=== PATIENT | female | born 1970 | race Caucasian/White ===

== ENCOUNTER 2017-10-15 16:02 | Emergency (ER) | payer SELFPAY ==
[2017-10-15 16:38] VITALS: BP 123/74
[2017-10-15] MEDS ORDERED: Amoxicillin/Clavulanate TAB* 875 MG PO ONE (16:51)
[2017-10-15] MEDS ORDERED: Ibuprofen TAB* 400 MG PO ONE (16:52)
[2017-10-15] MEDS ORDERED: Benzoin Compound STICK TOPICAL ONE (16:55)
--- NOTE | 2017-10-15 16:58 | UC ---
Laceration HPI - HPI Summary HPI Summary: Patient has a 1 cm flap laceration to the fourth finger of her right hand. 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 she did not know there was a chip in the porcelain ran her finger over the laceration patient states her tetanus is up-to-date it is less than 2 years old - History Of Current Complaint Chief Complaint: UCLaceration Stated Complaint: FINGER LAC Time Seen by Provider: 10/15/17 16:48 Hx Obtained From: Patient Hx Last Menstrual Period: sporadic periods - unknown Laceration Location: Finger - Right fourth distal finger Mechanism Of Injury: Sharp Trauma Onset/Duration: Sudden Onset Severity: Moderate Pain Intensity: 7 Pain Scale Used: 0-10 Numeric Aggravating Factors: Nothing Related History: Occupational Injury, Dominant Hand Right - Allergies/Home Medications Allergies/Adverse Reactions: Allergies Allergy/AdvReac Type Severity Reaction Status Date / Time No Known Allergies Allergy Verified 10/15/17 16:30 Home Medications: Home Medications Etonogestrel [Nexplanon] 68 mg IMPLANT DAILY 10/15/17 [History Confirmed ] busPIRone TAB* [Buspar TAB*] 5 mg PO BID 10/15/17 [History Confirmed 10/15/17] PMH/Surg Hx/FS Hx/Imm Hx Previously Healthy: No Psychological History: Anxiety - Surgical History Surgical History: None - Family History Known Family History: Positive: None - Social History Occupation: Employed Full-time Lives: With Family Alcohol Use: None Substance Use Type: None Smoking Status (MU): Heavy Every Day Tobacco Smoker Amount Used/How Often: 1 PPD Review of Systems Constitutional: Negative Skin: Other - Distal right fourth finger palmar surface 1 cm laceration Eyes: Negative ENT: Negative Respiratory: Negative Cardiovascular: Negative Gastrointestinal: Negative Genitourinary: Negative Motor: Negative Neurovascular: Negative Musculoskeletal: Negative Neurological: Negative Psychological: Negative Is Patient Immunocompromised?: No All Other Systems Reviewed And Are Negative: Yes Physical Exam Triage Information Reviewed: Yes Appearance: Well-Appearing, No Pain Distress, Well-Nourished Vital Signs: Initial Vital Signs Temp 98 F 10/15/17 16:32 Pulse 73 10/15/17 16:32 Resp 18 10/15/17 16:32 BP 123/74 10/15/17 16:32 Pulse Ox 100 03/21/18 16:32 Vital Signs Reviewed: Yes Eye Exam: Normal Eyes: Positive: Conjunctiva Clear ENT Exam: Normal ENT: Positive: Normal ENT inspection, Hearing grossly normal. Negative: Trismus , Muffled voice, Hoarse voice Dental Exam: Normal Neck exam: Normal Neck: Positive: Supple, Nontender Respiratory Exam: Normal Respiratory: Positive: No respiratory distress, No accessory muscle use Cardiovascular Exam: Normal Cardiovascular: Positive: RRR, Pulses Normal, Brisk Capillary Refill Musculoskeletal Exam: Normal Musculoskeletal: Positive: Strength Intact, ROM Intact, No Edema Neurological Exam: Normal Neurological: Positive: Alert, Muscle Tone Normal Psychological Exam: Normal Psychological: Positive: Normal Response To Family, Age Appropriate Behavior - Ross with Dr. Hernández Skin Exam: Other Skin: Positive: Other - patient has a 1 cm laceration to the palmar surface of the distal right fourth finger Laceration Repair - Laceration Repair 1 Description: Irregular - Flap laceration Laceration Size After Repair: Length (cm) - 1 cm, Width (mm) - 2, Depth (mm) - 1 Modified For Repair: No Cleansing Completed Via Routine Prep: Yes Irrigation With Pressure Irrigation Device: Yes Closure Material: SteriStrips Laceration Course/Dx - Course/Dx Course Of Treatment: Wound cleaned with pressure. No bleeding. Well approximated. We'll start patient on Augmentin, ibuprofen for pain we'll close wound with Steri-Strips will keep exquisitely clean and dry with the next 4 days patient to be out of work she has a splint on it for protection. Follow- up with primary care doctor or return as needed - Differential Dx - Laceration/Wound Provider Diagnoses: 1 cm Laceration with steri repair to right 4th finger Discharge - Sign-Out/Discharge Documenting (check all that apply): Discharge - Discharge Plan Condition: Stable Disposition: HOME Prescriptions: Amoxicillin/Clavulanate TAB* [Augmentin TAB 875*] 875 mg PO BID #20 tab Patient Education Materials: Ibuprofen (By mouth), Finger Laceration (ED) Forms: *Work Release Referrals: Raul Martino MD [Primary Care Provider] - If Needed - Billing Disposition and Condition Condition: STABLE Disposition: HOME
== END 2017-10-15 17:54 | disposition home or self-care (01) ==
LOC: UCEAST 16:02
DX: S61.214A Laceration without foreign body of right ring finger without damage to nail, initial encounter (principal); W26.8XXA Contact with other sharp object(s), not elsewhere classified, initial encounter; Y93.E9 Activity, other interior property and clothing maintenance; Y92.214 College as the place of occurrence of the external cause; F17.200 Nicotine dependence, unspecified, uncomplicated
CPT/HCPCS: 12001; 99212; A9270-GY; G0463